=== PATIENT | female | born 1975 | race American Indian/Alaskan Native ===

== ENCOUNTER 2021-02-13 18:37 | Emergency (ER) | payer SELFPAY ==
[2021-02-13 18:43] VITALS: BP 119/70
--- NOTE | 2021-02-13 19:02 | Emergency Department Report ---
ED General Adult HPI - General Stated complaint: SOB Time Seen by Provider: 02/13/21 18:50 Source: patient - History of Present Illness Initial comments: Ms. Mathis is a 45 years old female with no significant past medical history. Patient presented to the ER complaining of sudden onset of chest pain, palpitation and shortness of breath. Patient stated that symptoms started few minutes after she was given something called PCD goodcarrol. Patient stated that she never had anything like this before. She stated that she was drinking alcohol but not too much. Patient denied any fever or chills. Patient stated that she has been vaccinated for COVID-19 in July. Severity scale (0 -10): 9 - Related Data Allergies Allergy/AdvReac Type Severity Reaction Status Date / Time No Known Allergies Allergy Verified 02/13/21 19:27 ED Review of Systems ROS: Stated complaint: SOB Other details as noted in HPI Comment: All other systems reviewed and negative Constitutional: denies: chills, fever Respiratory: shortness of breath. denies: cough, SOB with exertion, SOB at rest, wheezing Cardiovascular: chest pain, palpitations Gastrointestinal: denies: abdominal pain, nausea, vomiting Skin: denies: rash Neurological: denies: headache, weakness, numbness, paresthesias, confusion Psychiatric: anxiety. denies: depression, auditory hallucinations, visual hallucinations, homicidal thoughts, suicidal thoughts ED Physical Exam - General General appearance: alert, in no apparent distress, anxious - Head Head exam: Present: atraumatic, normocephalic, normal inspection - Eye Eye exam: Present: normal appearance, PERRL - ENT ENT exam: Present: normal exam, normal orophraynx, mucous membranes moist - Neck Neck exam: Present: normal inspection, full ROM. Absent: tenderness, meningismus, lymphadenopathy, thyromegaly - Respiratory Respiratory exam: Present: normal lung sounds bilaterally - Cardiovascular Cardiovascular Exam: Present: tachycardia. Absent: irregular rhythm, systolic murmur, diastolic murmur, gallop - GI/Abdominal GI/Abdominal exam: Present: soft, normal bowel sounds. Absent: distended, tenderness, guarding, rebound, rigid, organomegaly, mass, bruit, pulsatile mass, hernia - Extremities Exam Extremities exam: Present: normal inspection, full ROM, normal capillary refill. Absent: tenderness, pedal edema, joint swelling, calf tenderness - Back Exam Back exam: Present: normal inspection, full ROM. Absent: CVA tenderness (R), CVA tenderness (L) - Neurological Exam Neurological exam: Present: alert, oriented X3, CN II-XII intact, normal gait, reflexes normal. Absent: motor sensory deficit - Psychiatric Psychiatric exam: Present: anxious. Absent: depressed, agitated, homicidal ideation, suicidal ideation - Skin Skin exam: Present: warm, intact, normal color ED Course Vital Signs 02/13/21 18:41 Temperature 97.8 F Pulse Rate 120 H Respiratory 30 H Rate Blood Pressure 119/70 [Left] O2 Sat by Pulse 100 Oximetry ED Medical Decision Making - EKG Data -: EKG Interpreted by Or EKG shows normal: sinus rhythm Rate: tachycardia - EKG Data Interpretation: no acute changes Critical care attestation.: If time is entered above; I have spent that time in minutes in the direct care of this critically ill patient, excluding procedure time. ED Disposition Clinical Impression: Palpitation Disposition: 07 LEFT AWOL/ELOPED Is pt being admited?: No Condition: Stable Instructions: Palpitations, [id number]
--- NOTE | 2021-02-14 11:35 | Electrocardiograph Report ---
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
== END 2021-02-13 23:13 | disposition left against medical advice (07) ==
LOC: ED 18:37
DX: R00.2 Palpitations (principal); R07.89 Other chest pain; R06.02 Shortness of breath
CPT/HCPCS: 93005; 99282

== ENCOUNTER 2021-06-22 16:01 | Outpatient (CLI) | payer BC | END 2021-06-22 16:02 | disposition home or self-care (01) | LOC: SPVWC 16:01 | PROVIDERS: ATTEND Internal Medicine | DX: Z12.31 Encounter for screening mammogram for malignant neoplasm of breast (principal) | CPT/HCPCS: 77067 ==